=== PATIENT | male | born 1990 | race Caucasian/White ===

== ENCOUNTER 2020-08-22 12:55 | Emergency (ER) | payer OTHER ==
[~2020-08-22] VITALS: Ht 165.1 cm; Wt 88.5 kg
--- NOTE | 2020-08-22 16:36 | EKG ---
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
== END 2020-08-22 15:43 | disposition left against medical advice (07) ==
LOC: M.ERS 12:55
DX: Z53.21 Procedure and treatment not carried out due to patient leaving prior to being seen by health care provider (principal)